=== PATIENT | female | born 1995 | race African-American/Black ===

== ENCOUNTER 2018-07-22 14:43 | Emergency (ER) | payer MEDICAID ==
[~2018-07-22] VITALS: Ht 172.7 cm; Wt 49.0 kg
--- NOTE | 2018-07-22 15:09 | NUR ---
PT A/OX4, PRESENTS TO THE ER C/O DEPRESSION W/ SI. PT DENIES PLAN AT THIS TIME. VSS. SPOKE W/ NURSING SAFETY TECHNICIAN, RASHAD, AND REQUESTED FOR 1:1 SITTER FOR SAFETY PRECAUTIONS. PT DENIES PAIN, C/P, SOB, N/V/D, DIZZINESS, HEADACHE.
--- NOTE | 2018-07-22 15:18 | NUR ---
PT DENIES HEARING VOICES, DENIES HI, DENIES PRIOR SUICIDE ATTEMPTS. ART DIRECTOR AT BEDSIDE. PT CHANGED INTO HOSPITAL GOWN, ALL PERSONAL BELONGINGS OUT OF ROOM. AWAITING ARRIVAL OF 1:1 SITTER. SHE IS CURRENTLY UNDER DIRECT OBSERVATION BY ME.
[2018-07-22 15:37] LABS: BASOPHILS # (AUTO) 0.1 K/uL (0.0-8.0); BASOPHILS % (AUTO) 1.3 % (0.0-2.0); EOSINOPHILS # (AUTO) 0.1 K/uL (0.0-0.7); HEMATOCRIT 41.3 % (31.2-41.9); HEMOGLOBIN 13.8 g/dL (10.9-14.3); LYMPHOCYTES # (AUTO) 3.1 K/uL (20.0-40.0); LYMPHOCYTES % (AUTO) 42.6 % (20.5-51.5); MEAN CORPUSCULAR HEMOGLOBIN 29.5 uug (24.7-32.8); MEAN CORPUSCULAR HGB CONC 33 g/dL (32.3-35.6); MEAN CORPUSCULAR VOLUME 88.4 fL (75.5-95.3); MONOCYTES # (AUTO) 0.4 K/uL (2.0-10.0); NEUTROPHILS # (AUTO) 3.6 K/uL (1.8-8.9); NEUTROPHILS % (AUTO) 49.1 % (38.5-71.5); PLATELET COUNT (AUTO) 352 K/uL (179-408); RED BLOOD CELL COUNT(AUTO) 4.67 MIL/uL (3.63-4.92); WHITE BLOOD COUNT (AUTO) 7.3 K/uL (3.8-11.8)
[2018-07-22 15:48] LABS: CARBON DIOXIDE 28 mmol/L (21-32); CHLORIDE 102 mmol/L (98-107); GLUCOSE 79 mg/dL (74-106); POTASSIUM 3.4 mmol/L (3.5-5.1); UREA NITROGEN, BLOOD 13 mg/dL (7-18)
--- NOTE | 2018-07-22 15:48 | NUR ---
JAMESON Marte HOSPITAL STAFF, AT BEDSIDE FOR 1:1 OBSERVATION.
[2018-07-22 15:53] LABS: ALANINE AMINOTRANSFERASE 11 U/L (14-59); ALKALINE PHOSPHATASE 75 U/L (50-136); ASPARTATE AMINOTRANSFERASE 16 U/L (15-37); BILIRUBIN,DIRECT 0.1 mg/dL (0.0-0.2); BILIRUBIN,TOTAL 0.5 mg/dL (0.2-1.0); ETHANOL < 3 MG/DL (0-0)
[2018-07-22 16:03] LABS: *AMPHETAMINE, URINE NEGATIVE (NEGATIVE); *BARBITURATE, URINE NEGATIVE (NEGATIVE); *CANNABINOID, URINE NEGATIVE (NEGATIVE); *COCCAINE, URINE NEGATIVE (NEGATIVE); *OPIATE, URINE NEGATIVE (NEGATIVE); *PHENCYCLIDINE SCREEN,URINE NEGATIVE (NEGATIVE)
--- NOTE | 2018-07-22 16:27 | NUR ---
MAMIE JAY, CRISIS PODODERMATOLOGIST, ETA 1 HOUR.
--- NOTE | 2018-07-22 17:34 | NUR ---
MAMIE JAY, CRISIS CHIROPRACTIC NEUROLOGIST, IN UNIT FOR PT EVAL.
--- NOTE | 2018-07-22 18:30 | NUR ---
Patient discharged to home in stable conditon. Written and verbal after care instructions given. Patient verbalizes understanding of instructions. ALL BELONGINGS W/ PT. PT SELF-AMBULATED W/O DIFFICULTY.
[2018-07-22 18:31] VITALS: BP 122/86
== END 2018-07-22 18:32 | disposition home or self-care (01) ==
LOC: ER 14:43
DX: F32.9 Major depressive disorder, single episode, unspecified (principal); R45.851 Suicidal ideations
CPT/HCPCS: 36415; 80048; 80076; 80307; 84702; 85025; 99284; G0480; A4663